=== PATIENT | female | born 1945 | race Caucasian/White ===

== ENCOUNTER 2018-07-05 07:18 | Day surgery (SDC) | payer OTHER, MEDICARE ==
[~2018-07-05] VITALS: Ht 149.9 cm; Wt 92.5 kg
[~2018-07-05 07:18] MED LIST: B COMPLEX1 EACH PO; CALCIUM 1,0001 EACH PO; LISINOPRIL20 MG PO; QVAR7.3 G1 IH; VITAMIN D2000 UNI1 PO
--- NOTE | 2018-07-05 09:01 | NUR ---
07/05/18 0901 Audra Yang 0852- PT ARRIVES TO PACU AROUSABLE TO VOICE. PT REPORTS NO PAIN OR NAUSEA, INSTANTLY BACK TO SLEEP. RESP EVEN AND UNLABORED. OXYGEN SAT HIGH 90'S TO 100% ON 2L VIA NC. 0854- OXYGEN TURNED OFF. OXYGEN SAT MID TO HIGH 90'S ON RA. RESP EVEN AND UNLABORED. 0856- PT PASSING FLATUS.
--- NOTE | 2018-07-05 10:10 | NUR ---
MET WITH PT-SHE IS ALERT AND ORIENTED. HAS HAD PREVIOUS SCOPES, VERY PLEASANT, WE CONTINUED, PT BECAME SOMEWHAT EMOTIONAL. SPENT TIME WITH PT, SHE REQUESTED PRAYER. PROVIDED TISSUE AND A WARM BLANKET FOR COMFORT AND TUNED IN MUSIC FOR PT. WILL CONTINUE TO FOLLOW NEEDED
--- NOTE | 2018-07-06 13:38 | OR ---
[facility] [address] [place], [place] [address] Signed DATE OF OPERATION: 07/05/2018 SURGEON: Danilo Velasquez MD PREOPERATIVE DIAGNOSIS: History of diverticulosis and polyps. POSTOPERATIVE DIAGNOSES: 1. Polyps x2. 2. Diverticulosis. PROCEDURE: Total colonoscopy to cecum with cold morcellation polypectomy x2. ANESTHESIA: Intravenous sedation, fentanyl 100 mcg, Versed 5 mg. INDICATION: A 72-year-old white woman is a patient of Dr. Berrios and Dr. Barraza. She has had diverticulosis diagnosed in the past as well as polyps. She is admitted to undergo surveillance colonoscopy. She is symptom free currently. The risks of bleeding, infection, and perforation related to colonoscopy reviewed. She understands and wished to proceed. FINDINGS: The prep was excellent. Complete colonoscopy was undertaken to the cecum without problem. She had numerous diverticula of the sigmoid and left colon. There were two polyps, both small, one in the cecum, the other in the right colon. Both were excised completely with cold morcellation technique. DESCRIPTION OF PROCEDURE: The patient was brought to the endoscopy suite and placed in lateral decubitus position given intravenous sedation to the point of slurred speech and nystagmus. Digital rectal examination was normal. An Olympus video colonoscope was passed in the rectum and manipulated throughout the colon without problem ultimately intubating the cecum itself. Irrigation was undertaken. The ileocecal valve and appendiceal orifice were normal. On a mucosal fold of the cecum was a small polyp. This was adenomatous in appearance. It was excised completely with cold morcellation technique. The scope was further withdrawn and Electronically Signed By: DANILO VELASQUEZ MD 07/06/18 1338 PATIENT NAME: ERIC PRECIADO OPERATIVE REPORT DATE OF : 47 REPORT #: [id number] PHYSICIAN: DANILO VELASQUEZ MD PCP: LEA BARRAZA MD REPORT IS CONFIDENTIAL AND NOT TO BE RELEASED WITHOUT AUTHORIZATION [facility] [address], [place] [address] Signed another polyp is somewhat more smooth and somewhat hyperplastic in appearance was noted in the mid ascending colon. This was excised with cold morcellation technique completely as well. The scope was further withdrawn. There were no signs of other polyps, only diverticulosis. Retroflexed view of the rectum was normal except for internal hemorrhoidal changes. The scope was removed and the patient was taken to the recovery room in good condition. CONCLUDING DIAGNOSIS: 1. Diverticulosis. 2. Polyps x2. PLAN: Recommend repeat colonoscopy in 5 years sooner if clinically indicated. She will return to the ongoing care of Dr. Berrios and Dr. Barraza. MD BAUDILIO Whatley/BEVERLY /[id number] cc: MD Jennifer Marroquin MD Copies: LEA BARRAZA MD, PATRICIA J MD ~ Electronically Signed By: DANILO VELASQUEZ MD 07/06/18 1338 PATIENT NAME: ERIC PRECIADO OPERATIVE REPORT DATE OF : 47 REPORT #: [id number] PHYSICIAN: DANILO VELASQUEZ MD PCP: LEA BARRAZA MD REPORT IS CONFIDENTIAL AND NOT TO BE RELEASED WITHOUT AUTHORIZATION
== END 2018-07-05 10:00 | disposition home or self-care (01) ==
LOC: DS 07:18 → OPS 07:18 → DS 08:30 → OPS 10:00
PROVIDERS: Surgery
PROC: 0DBK8ZZ Excision of Ascending Colon, Via Natural or Artificial Opening Endoscopic (ICD-10-PCS; 2018-07-05)
PROC: 0DBH8ZZ Excision of Cecum, Via Natural or Artificial Opening Endoscopic (ICD-10-PCS; principal; 2018-07-05 08:30)
DX: Z12.11 Encounter for screening for malignant neoplasm of colon (principal); D12.0 Benign neoplasm of cecum; K63.5 Polyp of colon; K57.30 Diverticulosis of large intestine without perforation or abscess without bleeding; J45.909 Unspecified asthma, uncomplicated; C44.619 Basal cell carcinoma of skin of left upper limb, including shoulder; I10 Essential (primary) hypertension; Z86.010 Personal history of colon polyps
CPT/HCPCS: 99153; G0500; J2250; J2405; J3010; J7120

== ENCOUNTER 2022-12-12 10:01 | Day surgery (SDC) | payer BC, MEDICARE ==
[~2022-12-12] VITALS: Ht 149.9 cm; Wt 72.7 kg
--- NOTE | ~2022-12-12 | OR ---
[facility] [address] [place], [place] [address] Draft DATE OF OPERATION: 12/12/2022 SURGEON: Danilo Velasquez MD PREOPERATIVE DIAGNOSES: History of tubular adenoma and hyperplastic polyp 2019, occasional right-sided abdominal pain. POSTOPERATIVE DIAGNOSES: 1. Sigmoid diverticulosis. 2. Small cecal polyp (excised). 3. Minimal arteriovenous malformations sigmoid area. PROCEDURE: Total colonoscopy to cecum with cold morcellation polypectomy x1. ANESTHESIA: Intravenous sedation; fentanyl 100 mcg and Versed 4 mg. INDICATION: This 77-year-old white woman is a patient of ANTHONY Brown. She has undergone colonoscopy in 2019 showing hyperplastic polyp as well as a tubular adenoma. She has occasional right-sided abdominal pain, but no blood per rectum. She is admitted to undergo surveillance colonoscopy on the basis of prior polyps. She understands the risk of bleeding, infection, and perforation. FINDINGS: The prep was excellent. Complete colonoscopy was undertaken to the cecum without question. She had numerous diverticula of the sigmoid and left colon. There was a small arteriovenous malformation area in the sigmoid, nonbleeding of course. There was a small polyp that was adenomatous of the cecum, which was excised completely. There were no other findings of concern. DESCRIPTION OF PROCEDURE: The patient was brought to the endoscopy suite and placed in the lateral decubitus position, given intravenous sedation to the point of slurred speech and nystagmus. Full cardiopulmonary monitoring was maintained. Digital rectal examination was normal. An Olympus video colonoscope was passed in the rectum and manipulated throughout the colon noting numerous diverticula of the sigmoid and left colon. The scope was passed PATIENT NAME: ERIC PRECIADO OPERATIVE REPORT DATE OF : 47 REPORT #: [id number] PHYSICIAN: DANILO VELASQUEZ MD PCP: ORLIN DAMON PAC REPORT IS CONFIDENTIAL AND NOT TO BE RELEASED WITHOUT AUTHORIZATION [facility] [address] [place], [place] [address] Draft beyond this ultimately to the cecum. The ileocecal valve and appendiceal orifice were normal. The scope was withdrawn from that point and examination showed on the edge of the cecum, a small adenomatous polyp. This was excised with cold morcellation technique. Further withdrawal of the scope showed no sign of abnormality other than diverticulosis of the left colon and sigmoid as well as some arteriovenous malformations in the sigmoid area. Further withdrawal allowed for retroflexed view in the rectum, which was normal. Scope was straightened, withdrawn and removed. The patient was taken to the recovery room in good condition. CONCLUDING DIAGNOSES: Polyp of cecum x1; diverticulosis of the sigmoid and left colon and mild arteriovenous malformations, nonbleeding. PLAN: Recommend repeat colonoscopy in 5 years, sooner if clinically indicated. She will return to the ongoing care of Orlin Damon. MD BAUDILIO Whatley/BEVERLY /[id number] cc: ANTHONY Brown. Copies: ~ PATIENT NAME: ERIC PRECIADO OPERATIVE REPORT DATE OF : 47 REPORT #: [id number] PHYSICIAN: DANILO VELASQUEZ MD PCP: ORLIN DAMON PAC REPORT IS CONFIDENTIAL AND NOT TO BE RELEASED WITHOUT AUTHORIZATION
[2022-12-12 10:17] VITALS: BP 142/52
--- NOTE | 2022-12-12 11:09 | NUR ---
12/12/22 1109 Tanisha Vizcarra 1106-PATIENT ARRIVED TO PACU ON 3L NC RR EVEN. PATIENT AWAKE DENIES PAIN OR NAUSEA. LAYING LEFT LATERAL ABDOMEN SOFT PASSING GAS. IVF INFUSING.
[2022-12-12 12:11] VITALS: BP 134/57
== END 2022-12-12 12:20 | disposition home or self-care (01) ==
LOC: OPS 10:01 → DS 10:01 → OPS 11:00 → DS 11:00 → OPS 12:20 → DS 13:00
PROVIDERS: ATTEND Surgery
PROC: 0DBH8ZZ Excision of Cecum, Via Natural or Artificial Opening Endoscopic (ICD-10-PCS; principal; 2022-12-12 11:00)
DX: K63.5 Polyp of colon (principal); Z86.010 Personal history of colon polyps; K57.30 Diverticulosis of large intestine without perforation or abscess without bleeding; J45.909 Unspecified asthma, uncomplicated; N83.209 Unspecified ovarian cyst, unspecified side; I10 Essential (primary) hypertension; Z90.49 Acquired absence of other specified parts of digestive tract; Q27.30 Arteriovenous malformation, site unspecified
CPT/HCPCS: 99153; G0500; J2250; J2405; J3010; J7121

== ENCOUNTER 2024-07-17 12:52 | Day surgery (SDC) | payer MEDICARE ==
[~2024-07-17] VITALS: Ht 149.9 cm; Wt 78.0 kg
--- NOTE | ~2024-07-17 | OR ---
[facility] [address] [place], [place] [address] Draft DATE OF OPERATION: 07/17/2024 SURGEON: Danilo Velasquez MD PREOPERATIVE DIAGNOSES: History of serrated adenoma of cecum in 2022 and diverticulosis. POSTOPERATIVE DIAGNOSES: 1. No sign of residual or recurrent cecal polyp. 2. Diverticulosis. PROCEDURE: Total colonoscopy to cecum. ANESTHESIA: Intravenous sedation; fentanyl 100 mcg and Versed 4 mg. INDICATION: This 78-year-old white woman is a patient of ANTHONY Brown. She underwent colonoscopy by co in 2022 where she was found to have fragments of the serrated adenoma of the cecum. On that basis, a short-term repeat colonoscopy was recommended. She had polyps in 2019, it is recalled. She understands the risk of bleeding, infection, and perforation related to colonoscopy and wished to proceed. FINDINGS: The prep was good. Complete colonoscopy was undertaken of the cecum with intubation of the cecum. There was no sign of residual polyp. Diverticulosis was noted in the sigmoid and left colon. DESCRIPTION OF PROCEDURE: The patient was brought to the endoscopy suite and placed in the lateral decubitus position, given intravenous sedation to the point of slurred speech and nystagmus. Digital rectal examination was normal. An Olympus video colonoscope was passed in the rectum and manipulated throughout the colon ultimately intubating the cecum itself. The ileocecal valve and appendiceal orifice were normal. Scope was withdrawn from that point and examination throughout showed no sign of abnormality until the sigmoid and left colon where numerous diverticula were noted. Retroflexed view of the rectum was normal. Scope was removed and the patient was taken to the recovery room in good condition. PATIENT NAME: ERIC PRECIADO OPERATIVE REPORT DATE OF : 47 REPORT #: [id number] PHYSICIAN: DANILO VELASQUEZ MD PCP: ORLIN DAMON PAC REPORT IS CONFIDENTIAL AND NOT TO BE RELEASED WITHOUT AUTHORIZATION [facility] [address] [place], [place] [address] Draft CONCLUDING DIAGNOSIS: Diverticulosis. No sign of residual polyp. PLAN: Recommend repeat colonoscopy in 5 to 7 years. She should have it sooner if symptoms should develop. MD BAUDILIO Whatley/BEVERLY /[id number] cc: ANTHONY Brown. Copies: ~ PATIENT NAME: ERIC PRECIADO OPERATIVE REPORT DATE OF : 47 REPORT #: [id number] PHYSICIAN: DANILO VELASQUEZ MD PCP: ORLIN DAMON PAC REPORT IS CONFIDENTIAL AND NOT TO BE RELEASED WITHOUT AUTHORIZATION
[~2024-07-17 12:52] MED LIST changes: +IBLOOD GLUCOSE TEST STRIP 1 EA TEST VI PRN; +LACTATED RINGER'S 1,000 ML IV SCH; +LIDOCAINE HCL 1% 5 ML SDV INJ ONE; +MIDAZOLAM HCL 5 MG/5 ML VIAL IV PRN; +fentaNYL citrate 100 MCG/2 ML VIAL IV PRN
[2024-07-17 13:05] VITALS: BP 149/57
[2024-07-17] MEDS ORDERED: MIDAZOLAM HCL 5 MG/5 ML VIAL ONE (15:01)
[2024-07-17] MEDS ORDERED: fentaNYL citrate 100 MCG/2 ML VIAL ONE (15:02)
[2024-07-17] MEDS ORDERED: ondansetron HCL 4 MG/2 ML VIAL ONE (15:28)
--- NOTE | 2024-07-17 15:54 | NUR ---
07/17/24 1554 Queenie,Cecy 1546 PT ARRIVED TO PACU ON 2L VIA NC, RESP EVEN AND UNLABORED. PT ENCOURAGED TO PASS GAS NEEDED. VSS. 1550 AT BEDSIDE TALKING TO PT, PT AWAKE AND LOOKING AROUND ROOM.
[2024-07-17] MEDS ORDERED: ondansetron HCL 4 MG/2 ML VIAL IV ONE (16:00)
[2024-07-17] MEDS ORDERED: droPERidol 5 MG/2 ML VIAL IV PRN (17:00)
[2024-07-17 17:01] VITALS: BP 132/67
== END 2024-07-17 17:10 | disposition home or self-care (01) ==
LOC: OPS 12:52 → DS 12:53 → OPS 14:00
PROVIDERS: ATTEND Surgery
PROC: 0DJD8ZZ Inspection of Lower Intestinal Tract, Via Natural or Artificial Opening Endoscopic (ICD-10-PCS; principal; 2024-07-17 14:00)
DX: K57.30 Diverticulosis of large intestine without perforation or abscess without bleeding (principal); J45.909 Unspecified asthma, uncomplicated; Z86.0101 Personal history of adenomatous and serrated colon polyps; Z90.49 Acquired absence of other specified parts of digestive tract; Z79.899 Other long term (current) drug therapy
CPT/HCPCS: 99153; G0500; J1790; J2250; J2405; J3010; J7121